=== PATIENT | female | born 1975 | race Caucasian/White ===

== ENCOUNTER 2020-07-20 10:38 | Emergency (ER) | payer OTHER ==
[~2020-07-20] VITALS: Ht 165.1 cm; Wt 116.1 kg
[~2020-07-20 10:38] MED LIST: ALDOMET500 MG; FOLIC ACID1 MG
[2020-07-20] MEDS ORDERED: ACTIGALL300 MG (10:54)
[2020-07-20] MEDS ORDERED: PENTOXIFYLLINE400 MG (10:54)
[2020-07-20] MEDS ORDERED: ESOMEPRAZOLE MA40 MG (10:55)
[2020-07-20] MEDS ORDERED: GLIMEPIRIDE2 M1 (10:55)
[2020-07-20] MEDS ORDERED: VITAMIN E400 UNI6 (10:56)
== END 2020-07-20 12:54 | disposition home or self-care (01) ==
LOC: ER 10:38
DX: M94.0 Chondrocostal junction syndrome [Tietze] (principal); M54.89 Other dorsalgia